=== PATIENT | female | born 1990 | race Two or more races ===

== ENCOUNTER 2021-03-09 17:04 | Emergency (ER) | payer BC ==
[~2021-03-09] VITALS: Ht 165.1 cm; Wt 76.0 kg
[2021-03-09] MEDS ORDERED: SULF1TAB48 MT (20:59)
[2021-03-09 21:19] VITALS: BP 100/70
== END 2021-03-09 21:21 | disposition home or self-care (01) ==
LOC: ER 17:04
DX: L02.31 Cutaneous abscess of buttock (principal)
CPT/HCPCS: 10060; 99282

== ENCOUNTER 2021-03-13 13:24 | Emergency (ER) | payer BC ==
[~2021-03-13] VITALS: Ht 157.5 cm; Wt 76.0 kg
[~2021-03-13 13:24] MED LIST: SULF1TAB48 MT
[2021-03-13] MEDS ORDERED: HYDROCODONE/ACETAMINOPHEN 5/325MG TABLET PO STA (14:30)
[2021-03-13] MEDS ORDERED: BACITRACIN ZINC OINT UDPKT TOP ONE (15:30)
[2021-03-13] MEDS ORDERED: LIDOCAINE HCL/EPINEPHRINE 1%-EPI 1:100,000 20 ML VIAL INFIL ONE (15:30)
[2021-03-13] MEDS ORDERED: KETOROLAC 60MG/2ML VIAL IM STA (16:26)
[2021-03-13] MEDS ORDERED: LIDOCAINE HCL 1% 20ML VIAL (Pyxis) INJ INFIL STA (17:30)
[2021-03-13] MEDS ORDERED: CEFTRIAXONE SODIUM 1 G/VIAL IM STA (17:30)
[2021-03-13] MEDS ORDERED: HYDR-4001 PO (17:42)
[2021-03-13] MEDS ORDERED: AMOX-424 PO (17:42)
[2021-03-13] MEDS ORDERED: IBUP-2029 PO (17:42)
[2021-03-13 18:30] VITALS: BP 125/84
== END 2021-03-13 18:31 | disposition home or self-care (01) ==
LOC: ER 13:24
DX: L02.31 Cutaneous abscess of buttock (principal); Z48.00 Encounter for change or removal of nonsurgical wound dressing
CPT/HCPCS: 96372; 99284; J0696; J1885; J3490; Z7610